=== PATIENT | male | born 1980 | race Caucasian/White ===

== ENCOUNTER 2021-04-21 09:48 | Emergency (ER) | payer SELFPAY ==
[2021-04-21] MEDS ORDERED: PREDNISONE 20MG20 MG PO (10:32)
== END 2021-04-21 10:35 | disposition home or self-care (01) ==
LOC: FER 09:48
DX: G56.03 Carpal tunnel syndrome, bilateral upper limbs (principal); Z88.0 Allergy status to penicillin; Z88.2 Allergy status to sulfonamides
CPT/HCPCS: 99283